=== PATIENT | female | born 1995 | race American Indian/Alaskan Native ===

== ENCOUNTER 2021-11-10 10:27 | Emergency (ER) | payer MEDICAID ==
[2021-11-10] MEDS ORDERED: PENICILLIN G BENZATHINE 1.2 MILLION UNIT/2 ML INJ IM ONE (14:17)
[2021-11-10] MEDS ORDERED: KETOROLAC 10 MG TAB PO ONE (14:17)
[2021-11-10] MEDS ORDERED: dexAMETHasone 4 MG/ML VIAL PO ONE (14:17)
--- NOTE | 2021-11-10 15:21 | Emergency Department Report ---
ED ENT HPI - General Chief complaint: Sore Throat Stated complaint: BILATERAL PAIN/THROAT PAIN Time Seen by Provider: 11/10/21 14:13 Source: patient, EMS Mode of arrival: Stretcher Limitations: No Limitations - History of Present Illness Initial comments: 26-year-old black female with no past medical history presents to the emergency department for evaluation of 1 day history of sore throat, fever, headache, abdominal pain. 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 MD complaint: sore throat -: days(s) (1) Location: throat Severity: moderate Severity scale (0 -10): 8 Quality: burning, aching Consistency: constant Worsens with: swallowing Associated Symptoms: fever, pain with swallowing, sore throat. denies: cough, gum swelling, toothache, tinnitus, hearing loss, discharge from ear, rhinorrhea - Related Data Previous Rx's Medication Instructions Recorded Last Taken Type Nystas/Diphen/Xyl Visc/Mylanta 30 ml MM Q4H PRN #240 ml 11/10/21 Unknown Rx [Magic Mouthwash] Allergies Allergy/AdvReac Type Severity Reaction Status Date / Time No Known Allergies Allergy Unverified 11/10/21 10:32 ED Dental HPI - General Chief complaint: Sore Throat Stated complaint: BILATERAL PAIN/THROAT PAIN Time Seen by Provider: 11/10/21 14:13 Source: patient, EMS Mode of arrival: Stretcher Limitations: No Limitations - Related Data Previous Rx's Medication Instructions Recorded Last Taken Type Nystas/Diphen/Xyl Visc/Mylanta 30 ml MM Q4H PRN #240 ml 11/10/21 Unknown Rx [Magic Mouthwash] Allergies Allergy/AdvReac Type Severity Reaction Status Date / Time No Known Allergies Allergy Unverified 11/10/21 10:32 ED Review of Systems ROS: Stated complaint: BILATERAL PAIN/THROAT PAIN Other details as noted in HPI Comment: All other systems reviewed and negative Constitutional: fever, malaise. denies: chills, weakness ENT: throat pain. denies: ear pain, congestion Respiratory: denies: cough, shortness of breath Cardiovascular: denies: chest pain Gastrointestinal: abdominal pain, nausea. denies: vomiting Neurological: headache. denies: weakness ED Past Medical Hx - Past Medical History Previous Medical History?: No - Medications Home Medications: Home Medications Medication Instructions Recorded Confirmed Last Taken Type Nystas/Diphen/Xyl Visc/Mylanta 30 ml MM Q4H PRN #240 ml 11/10/21 Unknown Rx [Magic Mouthwash] ED Physical Exam - General Limitations: No Limitations General appearance: alert, in no apparent distress - Head Head exam: Present: atraumatic, normocephalic - Eye Eye exam: Present: normal appearance. Absent: conjunctival injection, periorbital swelling, periorbital tenderness - Expanded ENT Exam Expanded Throat exam: Positive: tonsillar erythema, tonsillomegaly, tonsillar exudate. Negative: R peritonsillar mass, L peritonsillar mass - Neck Neck exam: Present: normal inspection, tenderness, lymphadenopathy (Anterior cervical) - Respiratory Respiratory exam: Present: normal lung sounds bilaterally. Absent: respiratory distress, wheezes, rales, rhonchi, stridor, chest wall tenderness - Cardiovascular Cardiovascular Exam: Present: regular rate, normal heart sounds - GI/Abdominal GI/Abdominal exam: Present: soft, normal bowel sounds. Absent: distended, tenderness, guarding, rebound, rigid - Extremities Exam Extremities exam: Present: normal inspection. Absent: normal capillary refill - Back Exam Back exam: Present: normal inspection - Neurological Exam Neurological exam: Present: alert, oriented X3, normal gait - Psychiatric Psychiatric exam: Present: normal affect, normal mood - Skin Skin exam: Present: warm, dry, intact, normal color ED Course Vital Signs 11/10/21 11/10/21 10:28 15:20 Temperature 98.2 F 97.1 F L Pulse Rate 91 H 68 Respiratory 18 16 Rate Blood Pressure 148/97 134/78 [Left] O2 Sat by Pulse 99 100 Oximetry ED Medical Decision Making - Medical Decision Making 26-year-old black female with no past medical history presents to the emergency department for evaluation of 1 day history of sore throat, fever, headache, abdominal pain. 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 Exam consistent with exudative pharyngitis. Patient treated with one-time dose of Bicillin IA 1,200,000 units IM along with Decadron 8 mg p.o. and Toradol 10 m g p.o. She will be discharged home with a prescription for Magic mouthwash to use as directed. She is advised to follow-up with her primary care provider if no improvement or worsening symptoms and return to the emergency department as needed. She verbalizes understanding of and agreement with plan of care. Critical care attestation.: If time is entered above; I have spent that time in minutes in the direct care of this critically ill patient, excluding procedure time. ED Disposition Clinical Impression: Exudative pharyngitis Disposition: HOME / SELF CARE / HOMELESS Is pt being admited?: No Does the pt Need Aspirin: No Condition: Stable Instructions: Strep Throat, Adult, [id number] Additional Instructions: Take medications as prescribed. Follow-up with your primary care provider if no improvement or worsening symptoms. Return to the emergency department as needed. Prescriptions: Nystas/Diphen/Xyl Visc/Mylanta [Magic Mouthwash] 30 ml MM Q4H PRN #240 ml PRN Reason: Sore Throat Referrals: JUANJO KEITH MD [Staff Physician] - 3-5 Days Forms: Work/School Release Form(ED) Time of Disposition: 15:21
[2021-11-10 15:54] VITALS: BP 134/78
== END 2021-11-10 15:48 | disposition home or self-care (01) ==
LOC: ED 10:27
DX: J02.9 Acute pharyngitis, unspecified (principal)
CPT/HCPCS: 96372; 99283; J0561; J1100